=== PATIENT | male | born 1980 | race Caucasian/White ===

== ENCOUNTER 2016-09-24 06:12 | Emergency (ER) ==
--- NOTE | 2016-09-24 06:47 | PROVIDER DOCUMENTATION ---
Addendum entered and electronically signed by Janice Meadows Scribe 09/24/16 09:08 : EKG Interpretation - EKG Time of EKG reading by physician:: 06:59 EKG Read and Signed by:: Darryl Linn EKG Interpretation (*Must complete 3 of following elements*): Abnormal Rate: 83 Rhythm: normal sinus rhythm Comments: right axis deviation Original Note: HPI-Respiratory General - General Chief Complaint: Shortness of Breath Stated Complaint: SOB/COUGH Time Seen by Provider: 09/24/16 06:32 Source: patient, family Allergies/Adverse Reactions: Patient Allergies Allergy/AdvReac Type Severity Reaction Status Date / Time cefaclor [From Ceclor] Allergy Unknown Verified 09/24/16 06:24 ceftriaxone sodium * Allergy Unknown Verified 09/24/16 06:24 [From Rocephin] sulfamethoxazole Allergy SWELLING Verified 09/24/16 06:24 [From Bactrim] trimethoprim [From Bactrim] Allergy SWELLING Verified 09/24/16 06:24 Home Medications: Home Medication List Medication Instructions Recorded Confirmed Last Taken Type Fluticasone Propionate [Flonase 9.9 ml NS DAILY #1 spray.susp 09/24/16 Unknown Rx Allergy Relief] Loratadine [Claritin] 10 mg PO QHS #30 tablet 09/24/16 Unknown Rx Methocarbamol [Robaxin-750] 750 mg PO BID PRN #60 tablet 09/24/16 Unknown Rx Naproxen 500 mg PO BID PRN PRN #60 tablet 09/24/16 Unknown Rx - History of Present Illness-Resp Nature of Presenting Problem: Was healthy last week when out in [place] but had some back pain from the bed that they were sleeping in. Then on Saturday noted SOB while doing chores and it continued Saturday and now he feels that he is too ill to go to work at [employer]. As he moves he says that he can't get his breath. As his back is examined and he bends from side to side , he says it stops his ability to breath Review of Systems - Adult - REVIEW OF SYSTEMS - ADULT Constitutional: denies: chills, fever Eyes: denies: discharge, blurred vision Ears, Nose, Mouth & Throat: denies: ear pain, nose pain Cardiovascular: denies: chest pain, heart murmur Respiratory: reports: dyspnea on exertion, pleurisy, shortness of breath. denies: cough Gastrointestinal: denies: abdominal pain, difficulty swallowing, vomiting Musculoskeletal: denies: joint pain Integumentary: denies: hair loss, mole changes Neurological: denies: ataxia, loss of balance, paresthesia Psychiatric: denies: anxiety, emotional problems Endocrine: denies: cold intolerance, heat intolerance Hematologic/Lymphatic: denies: low blood count, lymphedema, prolonged bleeding Past History - Adult - PAST MEDICAL HISTORY-ADULT Review of Records: reports: Nursing Assessment Review, Medications Reviewed - PRIOR SURGERIES/PROCEDURES Surgical/Procedure History: reports: other (surgery of right foot metatarsal 15 years ago) Physical Exam-General - CONSTITUTIONAL General Appearance: appears well, alert, no apparent distress - EYES Eyes: PERRL/EOMI, pink conjunctivae - HEAD, EARS, NOSE, MOUTH & THROAT HENMT: normocephalic/atraumatic, moist mucous membranes, normal ENT inspection - RESPIRATORY Respiratory: chest non-tender, lungs clear, normal breath sounds, no respiratory distress, no accessory muscle use, pain on inspiration - CHEST (BREASTS) Chest/Breast: no tenderness - GASTROINTESTINAL (ABDOMEN) Abdominal Exam: normal bowel sounds, non tender, soft - MUSCULOSKELETAL Back Exam: normal inspection, no CVA tenderness, no vertebral tenderness Extremity: normal range of motion, non-tender, normal gait, normal inspection - SKIN Integumentary: normal color, normal turgor, warm/dry - NEUROLOGIC Neurologic: hse coordinator II-XII nml as tested, grossly normal, no motor/sensory deficits - PSYCHIATRIC Psych/Mental Status: normal mood/affect, normal thought content, normal thought process, oriented x 3 Progress - PLAN OF CARE/RESULTS Progress/Plan/Lab Results: CXR wnl Orders Category Date Time Status cxr [CHEST-2 VIEWS] [RAD] Stat Exams 09/24/16 06:38 Draft CBC WITH ELECTRONIC DIFF [HEME] Stat Lab 09/24/16 06:50 Completed CMP [COMPREHENSIVE METABOLIC PANEL] [CHEM] Stat Lab 09/24/16 06:50 Completed Ddimer [D-DIMER PL] [COAG] Stat Lab 09/24/16 06:50 Completed EKG [EKG] Stat Ther 09/24/16 07:01 Ordered Vital Signs Temp Pulse Resp BP Pulse Ox 09/24/16 07:32 83 20 113/61 96 09/24/16 06:20 99.5 F 86 18 146/83 100 cefaclor [From Ceclor] Allergy (Verified 09/24/16 06:24) Unknown ceftriaxone sodium * [From Rocephin] Allergy (Verified 09/24/16 06:24) Unknown sulfamethoxazole [From Bactrim] Allergy (Verified 09/24/16 06:24) SWELLING trimethoprim [From Bactrim] Allergy (Verified 09/24/16 06:24) SWELLING No Home Medications 09/24/16 Laboratory 09/24/16 09/24/16 09/24/16 06:50 06:50 06:50 WBC 5.86 RBC 5.77 Hgb 16.3 Hct 47.8 MCV 82.8 MCH 28.2 MCHC 34.1 RDW Std Deviation 13.0 Plt Count 239 MPV 10.0 Immature Gran % (Auto) 0.5 Neut % (Auto) 53.2 Lymph % (Auto) 24.6 [place] % (Auto) 18.6 H Eos % (Auto) 2.9 Baso % (Auto) 0.2 Immature Gran # (Auto) 0.03 Neut # (Auto) 3.12 Lymph # (Auto) 1.44 [place] # (Auto) 1.09 H Eos # (Auto) 0.17 Baso # (Auto) 0.01 D-Dimer < 0.22 L Sodium 138 Potassium 4.2 Chloride 103 Carbon Dioxide 25 Anion Gap 11 BUN 18 Creatinine 1.4 H Estimated GFR/1.73 m2 57 BUN/Creatinine Ratio 13 Glucose 101 Calculated Osmolality 278 Calcium 9.4 Total Bilirubin 0.50 AST 29 ALT 33 Alkaline Phosphatase 96 Total Protein 7.6 Albumin 4.7 Globulin 3.0 Albumin/Globulin Ratio 2.0 Laboratory Tests 09/24/16 09/24/16 09/24/16 06:50 06:50 06:50 WBC 5.86 RBC 5.77 Hgb 16.3 Hct 47.8 MCV 82.8 MCH 28.2 MCHC 34.1 RDW Std Deviation 13.0 Plt Count 239 MPV 10.0 Immature Gran % (Auto) 0.5 Neut % (Auto) 53.2 Lymph % (Auto) 24.6 [place] % (Auto) 18.6 H Eos % (Auto) 2.9 Baso % (Auto) 0.2 Immature Gran # (Auto) 0.03 Neut # (Auto) 3.12 Lymph # (Auto) 1.44 [place] # (Auto) 1.09 H Eos # (Auto) 0.17 Baso # (Auto) 0.01 D-Dimer < 0.22 L Sodium 138 Potassium 4.2 Chloride 103 Carbon Dioxide 25 Anion Gap 11 BUN 18 Creatinine 1.4 H Estimated GFR/1.73 m2 57 BUN/Creatinine Ratio 13 Glucose 101 Calculated Osmolality 278 Calcium 9.4 Total Bilirubin 0.50 AST 29 ALT 33 Alkaline Phosphatase 96 Total Protein 7.6 Albumin 4.7 Globulin 3.0 Albumin/Globulin Ratio 2.0 Departure - Departure Time of Disposition Order: 07:38 DIAGNOSIS: Rhinitis, allergic Qualifiers: Allergic rhinitis trigger: pollen Allergic rhinitis seasonality: seasonal Qualified Code(s): J30.1 - Allergic rhinitis due to pollen Back ache Qualifiers: Back pain location: low back pain Chronicity: acute Back pain laterality: unspecified Sciatica presence: without sciatica Qualified Code(s): M54.5 - Low back pain Disposition: HOME 01 Certified Medical Emergency: Emergent Condition: Stable Additional Instructions: ED Follow Up Instructions: You have been treated by a care provider in the Emergency Department. These instructions are being provided to you so you can have an understanding of how to care for yourself upon discharge. Upon discharge from the Emergency Department, you are responsible for making arrangements for follow-up care by a physician of your choice. Take all prescribed medications as directed. Return to the Emergency Department immediately for any new or worsening symptoms. You may call the Physician Referral phone number at [phone] to obtain a list of Physicians who are taking new patients. Prescriptions: Loratadine [Claritin] 10 mg PO QHS #30 tablet Fluticasone Propionate [Flonase Allergy Relief] 9.9 ml NS DAILY #1 spray.susp Naproxen 500 mg PO BID PRN PRN #60 tablet PRN Reason: Pain Methocarbamol [Robaxin-750] 750 mg PO BID PRN #60 tablet PRN Reason: muscle spasm
[2016-09-24 06:53] LABS: MANUAL DIFF NEEDED? NO
[2016-09-24 06:55] LABS: BASO% 0.2 % (0.0-0.8); EOS# 0.17 X1000 (0.0-0.7); EOS% 2.9 % (0.0-10.0); HEMATOCRIT 47.8 % (42.0-52.0); HEMOGLOBIN 16.3 g/dL (14.0-18.0); IMM GRAN# 0.03 X1000 (0.0-0.04); IMM GRAN% 0.5 % (0.0-0.5); LYMPH# 1.44 X1000 (1.2-3.4); LYMPH% 24.6 % (20.5-51.1); MCH 28.2 PG (27-31); MCHC 34.1 g/dL (33-37); MCV 82.8 FL (81-99); MONO# 1.09 X1000 (0.11-0.59); MONO% 18.6 % (1.7-9.3); NEUT% 53.2 % (42.2-75.2); PLT 239 X1000 (130-400); RBC 5.77 XMIL (4.7-6.1)
[2016-09-24 07:19] LABS: ALBUMIN 4.7 g/dL (3.5-5.0); CALCIUM 9.4 mg/dL (8.8-10.2); POTASSIUM 4.2 mmol/L (3.5-5.1); TOTAL BILIRUBIN 0.5 mg/dL (0.20-1.00); TOTAL PROTEIN 7.6 g/dL (6.3-8.3)
--- NOTE | 2016-09-24 07:23 | Diag Imaging Result Document ---
PROCEDURE NAME: CHEST-2 VIEWS - 09/24/2016 FRONTAL AND LATERAL CHEST, TWO VIEWS: FINDINGS: The lungs are well expanded. The heart is not enlarged. The vessels are not distended. No pneumonia. No pleural effusions. No free air beneath the diaphragm. IMPRESSION: No acute abnormality.
--- NOTE | 2016-09-24 07:40 | EKG Report ---
Test Performed on : 09/24/2016 06:59:51 AM Test Reason : sob Blood Pressure : / mmHG Vent. Rate : 083 BPM Atrial Rate : 083 BPM P-R Int : 152 ms QRS Dur : 084 ms QT Int : 330 ms P-R-T Axes : 053 114 007 degrees QTc Int : 387 ms Normal sinus rhythm. Right axis deviation Abnormal ECG No previous ECGs available Unconfirmed Result
[2016-09-24 08:03] VITALS: BP 092/066
== END 2016-09-24 08:02 | disposition home or self-care (01) ==
LOC: P.ED 06:12
DX: M54.5 Low back pain (principal); J30.1 Allergic rhinitis due to pollen; R94.31 Abnormal electrocardiogram [ECG] [EKG]; R06.09 Other forms of dyspnea; R09.1 Pleurisy; R06.02 Shortness of breath
CPT/HCPCS: 71020; 80053; 85025; 85379; 93005; 99283